=== PATIENT | female | born 1960 | race Caucasian/White ===

== ENCOUNTER → 2021-10-26 14:40 | Outpatient (BNVA) | payer MEDICAID, SELFPAY | PROVIDERS: Visit Provider Otolaryngology | DX: H66.91 Otitis media, unspecified, right ear (principal); H72.91 Unspecified perforation of tympanic membrane, right ear; H91.93 Unspecified hearing loss, bilateral; F17.210 Nicotine dependence, cigarettes, uncomplicated | CPT/HCPCS: 99213 ==

== ENCOUNTER → 2021-11-04 12:10 | Outpatient (BNVA) | payer MEDICAID, SELFPAY | PROVIDERS: Visit Provider Surgery | DX: K62.5 Hemorrhage of anus and rectum (principal); F17.210 Nicotine dependence, cigarettes, uncomplicated | CPT/HCPCS: 99203 ==

== ENCOUNTER 2021-12-10 09:14 | Outpatient (CLI) | payer MEDICAID, SELFPAY ==
--- NOTE | 2021-12-10 09:30 | CTR_ITS ---
PROCEDURE INFORMATION: Exam: CT Temporal Bones Without Contrast. Exam date and time: 12/10/2021 9:40 AM Age: 61 years old Clinical indication: Condition or disease; Patient HX: RT ear infection x 6 months; Additional info: Chronic infection, wants to see if infection is in mastoid bones TECHNIQUE: Imaging protocol: Computed tomography images of the temporal bones without contrast. Radiation optimization: All CT scans at this facility use at least one of these dose optimization techniques: automated exposure control; mA and/or kV adjustment per patient size (includes targeted exams where dose is matched to clinical indication); or iterative reconstruction. COMPARISON: No relevant prior studies available. RADIATION DOSE METRICS: Total DLP (mGy-cm): 344.8 FINDINGS: Right inner ear: See below. Right ossicles and middle ear: See Right mastoid air cells finding. Right external auditory canal: See Right mastoid air cells finding. Right facial nerve canal: Normal. Right jugular foramen: No jugular dehiscence. Right carotid canal: No aberrant carotid canal. Right mastoid air cells: Dense opacification of the mastoid air cells on the right as well as within the middle ear. Soft tissue prominence within the external auditory canal. Apparent prior operative changes in the region of the ossicles versus partial lysis of the ossicles.. Left inner ear: Normal. Left ossicles and middle ear: Normal. The middle ear ossicles are intact. Left external auditory canal: Normal. Left facial nerve canal: Normal. Left jugular foramen: No jugular dehiscence. Left carotid canal: No aberrant carotid canal. Left mastoid air cells: Left ear and mastoid air cells are normal. Bones/joints: Osteoma right anterior ethmoidal recess Soft tissues: Unremarkable. CT/CT temporal bone wo con* [id number] IMPRESSION: Dense opacification of the mastoid air cells on the right as well as within the middle ear. Soft tissue prominence within the external auditory canal. Apparent prior operative changes in the region of the ossicles versus partial lysis of the ossicles..
== END 2021-12-10 09:15 | disposition home or self-care (01) ==
LOC: RAD 09:28
PROVIDERS: Visit Provider Otolaryngology
DX: H66.91 Otitis media, unspecified, right ear (principal); H72.91 Unspecified perforation of tympanic membrane, right ear; H74.91 Unspecified disorder of right middle ear and mastoid; D16.4 Benign neoplasm of bones of skull and face
CPT/HCPCS: 70480

== ENCOUNTER → 2021-12-21 13:24 | Outpatient (BNVA) | payer MEDICAID, SELFPAY | PROVIDERS: Visit Provider Otolaryngology | DX: H66.91 Otitis media, unspecified, right ear (principal); H72.91 Unspecified perforation of tympanic membrane, right ear; H70.11 Chronic mastoiditis, right ear; H90.11 Conductive hearing loss, unilateral, right ear, with unrestricted hearing on the contralateral side; Z90.09 Acquired absence of other part of head and neck; F17.210 Nicotine dependence, cigarettes, uncomplicated | CPT/HCPCS: 99203; 99213 ==

== ENCOUNTER 2022-01-20 09:45 | Day surgery (SDC) | payer MEDICAID, SELFPAY ==
[2021-12-15 13:12] VITALS: BMI 25.8
[2022-01-19 10:36] VITALS: BMI 25.8
[2022-01-20 10:19] VITALS: BP 145/85; PULSE 74; RESP 18; TEMP 36.5; O2SAT 97
[2022-01-20] MEDS: sodium chloride 0.9% 1,000 ML 30 ML IV (10:39)
--- NOTE | 2022-01-20 11:09 | P.HP_ITS ---
Same Day Surgery H&P Indication for Procedure/HPI DATE OF PROCEDURE: January 20, 2022 CHIEF COMPLAINT/INDICATIONFOR SURGICAL PROCEDURE: Blood in stool PREOP DIAGNOSIS: Bleeding per rectum PLANNED PROCEDURE: Operation Date: 01/20/22 11:15 Proposed Procedures p EGD [id number](Not Applicable) - Bhargav Jenkins MD s Colonoscopy(Not Applicable) - Bhargav Jenkins MD 11/04/2021 This is a pleasant 61 years old female patient referred to my practice with history of peptic ulcer disease and history of bleeding per rectum over the past 5 months.? Had a previous colonoscopy about 10 years ago questionable polyps were found and she had history of hemorrhoids.? Patient had no history of blood thinners intake or history of colon cancer.? She does report today that she had a bad experience on her previous colonoscopy as she was awake through the whole entire procedure.? Patient denies any abdominal pain. 01/20/2022 Patient comes today for diagnostic EGD and colonoscopy with possible biopsy. Patient's concerns regarding anesthesia have been addressed by the anesthesia team. ROS All systems have been reviewed negative except as for the above or per problem list. Medications/Allergies* Home Medications Medication Instructions Recorded Confirmed Type No Known Home Medications 12/15/21 12/21/21 History Allergies/Adverse Reactions Allergy/AdvReac Type Severity Reaction Status Date / Time No Known Allergies Allergy Verified 01/20/22 11:10 Current Medications: Generic Name Dose Route Start Last Admin Trade Name Freq PRN Reason Stop Dose Admin Sodium Chloride 1,000 mls @ 30 mls/hr 01/20/22 10:15 01/20/22 10:39 Sodium Chloride 0.9% IV 01/21/22 10:14 30 mls/hr .Q24H MYLES Administration Pertinent History/Comorbid Conditions* Surgical History (Updated 12/21/21 @ 13:58 by Eber Maldonado MD) History of hysterectomy Social History Smoking and tobacco status: current every day smoker (pack) Pertinent Exam Findings alert, oriented x 3, regular rate & rhythm and procedure specific exam findings (Abdominal exam nontender nondistended soft) Recommendations Surgery/Procedure today (EGD and colonoscopy with possible biopsy) Coding Level of Care Code Acute Grinder Set Up Operator Gear Tool for Chg Fwd
--- NOTE | 2022-01-20 11:20 | ANES.PREANE2 ---
Pre-Anesthetic Assessment Height/Weight: Height 1.68 m Weight 72.575 kg Temp Pulse Resp BP Pulse Ox 97.7 F 74 18 145/85 97 01/20/22 10:19 01/20/22 10:19 01/20/22 10:19 01/20/22 10:19 01/20/22 10:19 Preop Diagnosis: Bleeding per rectum Operation Date: 01/20/22 11:15 Proposed Procedures p EGD [id number](Not Applicable) - Bhargav Jenkins MD s Colonoscopy(Not Applicable) - Bhargav Jenkins MD Familial anesthetic complications: Hx of PTSD like side effects after colonoscopy 20 years ago Was Beta Lamin taken within 24 hours: N/A Was Clonidine taken within 24 hours: N/A Last intake: Intake Last Liquid Date 01/19/22 Last Liquid Time 00:00 Last Solid Date 01/18/22 Last Solid Time 00:00 Social Tobacco and No alcohol Exam alert, oriented x 3, clear to auscultation bilaterally and regular rate & rhythm Airway Submandibular: within normal limits Cervical ROM: within normal limits Mallampati: Class II Dentition: chipped Comments: Comments: missing teeth Pulmonary chronic otitis None reported Hepatic None reported GI Gastroesophageal Reflux Disease and Hiatal Hernia Metabolic None reported Musc/skel None reported Neuropsych None reported Anesthetic Plan ASA status: 2 Anesthesia: Anesthesia Evaluation, General and MAC Other: I discussed with the patient risks, goals, and benefits of MAC and general anesthesia. We discussed spectrum of MAC anesthesia including conversion to general as well as possibility of recall of intraoperative stimuli including discomfort/pain. Patient agrees to proceed with MAC. Risk of > 500 ml blood loss (7ml/kg in children): No Medications/Allergies Home Medications Medication Instructions Recorded Confirmed Last Taken Type pantoprazole 40 mg tablet,delayed 40 mg PO DAILY 30 Days #30 tab 01/20/22 Unknown Rx release (Protonix) Allergies Allergy/AdvReac Type Severity Reaction Status Date / Time No Known Allergies Allergy Verified 01/20/22 11:10 Current Medications Generic Name Dose Route Start Last Admin Trade Name Freq PRN Reason Stop Dose Admin Sodium Chloride 1,000 mls @ 30 mls/hr 01/20/22 10:15 01/20/22 10:39 Sodium Chloride 0.9% IV 01/21/22 10:14 30 mls/hr .Q24H MYLES Administration PFSH Anesthesia Surgical History History of hysterectomy Social History Smoking and tobacco status: current every day smoker (pack) Data Anesthesia Cardiac Studies: No Data to Display
[2022-01-20 12:08] VITALS: BP 119/91; PULSE 87; RESP 18; TEMP 36.1; O2SAT 97
[2022-01-20 12:13] VITALS: BP 140/86; PULSE 77; RESP 18; O2SAT 98
[2022-01-20 12:20] VITALS: BP 124/84; PULSE 73; RESP 18; O2SAT 98
[2022-01-20 12:30] VITALS: BP 145/86; PULSE 61; RESP 18; O2SAT 99
--- NOTE | 2022-01-20 13:01 | PC.NURSE ---
1300 patient up to bathroom, passing gas. bowel sounds active. patient states theres a little bright red blood on tissue. instructed patient and significant other on when to report blood in stool to doctors office and when to go to emergency room. both verbalized understanding.
--- NOTE | 2022-01-20 13:14 | ANE.PACU2 ---
Documented by User: Lydia Beckman CRNA 01/20/22 13:15 Inpatient post-anesthesia follow up: Airway intact: Yes Vital signs: Temperature 97.0 F Pulse Rate 61 Respiratory Rate 18 Blood Pressure 145/86 Pulse Oximetry 99 Oxygen Delivery Me thod Room Air Oxygen Flow Rate 2 Fraction of Inspir ed Oxygen Hydration adequate: Yes Nausea and vomiting: No Pain level: 1 Mental status: Baseline
== END 2022-01-20 13:15 | disposition home or self-care (01) ==
PROVIDERS: Visit Provider Surgery
PROC: 0DJ08ZZ Inspection of Upper Intestinal Tract, Via Natural or Artificial Opening Endoscopic (ICD-10-PCS; CPT 43235; principal; 2022-01-20 11:15)
PROC: 0DJD8ZZ Inspection of Lower Intestinal Tract, Via Natural or Artificial Opening Endoscopic (ICD-10-PCS; CPT 45378; 2022-01-20 11:15)
DX: K62.5 Hemorrhage of anus and rectum (principal); D12.4 Benign neoplasm of descending colon; D12.5 Benign neoplasm of sigmoid colon; K57.30 Diverticulosis of large intestine without perforation or abscess without bleeding; K44.9 Diaphragmatic hernia without obstruction or gangrene; K29.70 Gastritis, unspecified, without bleeding; F17.210 Nicotine dependence, cigarettes, uncomplicated
CPT/HCPCS: 43239; 45385; 88305; J2704; J7030

== ENCOUNTER → 2022-01-27 15:01 | Outpatient (BNVA) | payer MEDICAID, SELFPAY | PROVIDERS: Visit Provider Surgery | DX: Z09 Encounter for follow-up examination after completed treatment for conditions other than malignant neoplasm (principal); K57.90 Diverticulosis of intestine, part unspecified, without perforation or abscess without bleeding; K29.70 Gastritis, unspecified, without bleeding; K63.5 Polyp of colon | CPT/HCPCS: 99213 ==